=== PATIENT | female | born 1945 | race Caucasian/White ===

== ENCOUNTER 2016-11-23 13:32 | Emergency (ER) | payer MEDICARE, BC ==
--- NOTE | 2016-11-23 14:11 | UC ---
Respiratory Complaint HPI - HPI Summary HPI Summary: Starting monday she started to have malaise and congestion. in the last 1-2 days she has had a cough. the cough is dry but there is pain in the chest and mid upper back with coughing. No fever. No hemoptysis. no sob at rest. No new swelling. NO prior lung disease. Only heart disease is svt with prior ablation. - History of Current Complaint Stated Complaint: COUGH CONGESTION PAIN IN BACK TO CHEST Time Seen by Provider: 11/23/16 13:42 Hx Obtained From: Patient Onset/Duration: Gradual Onset Timing: Constant Severity Initially: Mild Severity Currently: Moderate Character: Cough: Nonproductive Aggravating Factors: Deep Breaths, Recumbent Position Alleviating Factors: Nothing Associated Signs And Symptoms: Positive: URI, Nasal Congestion, Hoarseness. Negative: Fever, Pleuritic Chest Pain - she does not have pain with inspiration but she does have pain with coughing., Wheezing, Hemoptysis, Dizziness, Calf Pain, Calf Swelling, Edema, Sinus Discomfort - Allergies/Home Medications Allergies/Adverse Reactions: Allergies Allergy/AdvReac Type Severity Reaction Status Date / Time Ampicillin Allergy N/V, RED Verified 11/23/16 13:45 BLOTCHY Budesonide [From Symbicort] Allergy TACHYCARDIA Verified 11/23/16 13:45 , Cephalexin [From Keflex] Allergy Unknown Verified 11/23/16 13:45 Reaction Details Clindamycin Allergy Headache/FACIAL Verified 11/23/16 13:45 SWELLING WITH REDNESS Formoterol [From Symbicort] Allergy Tachycardia Verified 11/23/16 13:45 Hydrochlorothiazide Allergy Unknown Verified 11/23/16 13:45 [From Avalide] Reaction Details Irbesartan [From Avalide] Allergy Unknown Verified 11/23/16 13:45 Reaction Details Penicillins Allergy Hives Verified 11/23/16 13:45 Rofecoxib [From Vioxx] Allergy Unknown Verified 11/23/16 13:45 Reaction Details Sulfa Drugs Allergy Rash, Verified 11/23/16 13:45 VOMITING BRIMENIDINE TARTRATE EYE Allergy SORE Uncoded 11/09/15 15:42 DROPS EYE/REDNESS contrast dye Allergy HIVES IN Uncoded 11/09/15 15:42 EAR DRUM NUTRASWEET Allergy HEADACHES, Uncoded 11/09/15 15:42 HYPERTENSIVE PLASTIC BANDAIDS Allergy REDNESS Uncoded 11/09/15 15:42 PMH/Surg Hx/FS Hx/Imm Hx Previously Healthy: No - depression. medications reviewed. - Surgical History Surgical History: Yes Surgery Procedure, Year, and Place: Bilateral knee replacements 1999, [facility] [place] BILATERAL CATARACTS 2015. 1985 GASTRIC STAPLING, [facility] [place]. INCISIONAL HERNIA REPAIR , [facility] [place] 1969 CSECTION, [facility] [place] 1969 INCISIONAL HERNIA REPAIR, [facility] [place]. 1964 RIGHT FEMUR RODDING and 1966 REMOVAL OF FEMUR TATY, [facility] [place]. 1969 BILATERAL TUBAL LIGATION , [facility] [place]. 1999 ABLATION FOR SVT, [facility] - Family History Known Family History: Positive: Hypertension, Other - LUNG CA FATHER BRAIN CA MOTHER - Social History Alcohol Use: Rare Substance Use Type: None Smoking Status (MU): Never Smoked Tobacco Review of Systems ENT: Sore Throat, Sinus Congestion Respiratory: Cough All Other Systems Reviewed And Are Negative: Yes Physical Exam Triage Information Reviewed: Yes Appearance: Well-Appearing - she is pleasant and jovial. non toxic and no increased work of breathing., No Pain Distress, Well-Nourished Vital Signs Reviewed: Yes Eye Exam: Normal ENT Exam: Normal Neck exam: Normal Respiratory Exam: Normal - neg egophony beverly. no increased work of breathing. Good air movement throughout. Cardiovascular Exam: Normal Abdominal Exam: Normal Musculoskeletal Exam: Normal Musculoskeletal: Positive: No Edema, Edema @, Other: - neg homans. Psychological Exam: Normal Skin Exam: Normal UC Diagnostic Evaluation - EKG Cardiac Rate: NL Cardiac Rhythm: Sinus: Normal Ectopy: None ST Segment: Normal Respiratory Course/Dx - Course Course Of Treatment: this started as a uri and has progressed to a chest cold. There is good air movement beverly and with normal vitals and normal exam, I do not see evidence for pleural effusion, chf, pneumothorax or pneumonia. z pack if symptoms persist for 10 days and robitussin dm and tessalon perles for cough. - Differential Dx/Diagnosis Differential Diagnosis/HQI/PQRI: Foreign Body, Asthma, Bronchitis, CHF, Pulmonary Edema, Exacerbation Of COPD, Influenza, Laryngitis, Lower Resp Infection, Pneumothorax, Pulmonary Embolism, Sinusitis, Tuberculosis Provider Diagnoses: cough. chest cold. uri. Discharge - Discharge Plan Condition: Good Disposition: HOME Prescriptions: Azithromyxin OMAR (NF) [Z-Omar (Zithromax) 250 mg tabs #6] 6 tab PO .TODAY, THEN 1 DAILY #6 tab Benzonatate CAP* [Tessalon 100 MG CAP*] 100 mg PO TID PRN #20 cap PRN Reason: Cough Patient Education Materials: Decongestant/Expectorant (By mouth) Referrals: No Primary Care Phys,NOPCP [Primary Care Provider] - Additional Instructions: follow up withyour primary care doctor or return here if there is any worsening or if this is not better in 5 days.
[2016-11-23 14:16] VITALS: BP 145/81
== END 2016-11-23 14:19 | disposition home or self-care (01) ==
LOC: UCCORT 13:32
DX: J06.9 Acute upper respiratory infection, unspecified (principal); R05 Cough
CPT/HCPCS: 93005; 99211; G0463

== ENCOUNTER 2018-06-04 16:49 | Emergency (ER) | payer MEDICARE, BC ==
--- OUTSIDE RECORDS SUMMARY | 2018-06-04 16:53 | XMS REPORT | Continuity of Care Document ---
:1945 External Reference #:[id number] Author Name Tony Workman D.O. Address [address] [place] [address] Care Team Providers Name Role Phone HCP given Primary Care Physician Unavailable Payers Date Identification Numbers Payment Provider Subscriber Effective: Policy Number: [id number] [facility] Jagruti Boyer 2011 Services PayID: [id number] [address] [place] [address] Effective: Policy Number: [employer] Ind/Ppo/Hmo/Pos Jagruti Boyer 2016 [id number] PayID: [id number] [address] [address] [place] [address] Advance Directives Description No Information Available Problems Date Description Provider Status Onset: 05/17/2018 Essential hypertension Tony Workman D.O. Active Family History Date Family Member(s) Observation Comments General Alcoholism maternal uncles General Asthma mother General Bleeding Tendancy paternal aunt General Colon Cancer 2 uncles General Cancer Brain mother General Cancer maternal grandmother and 3 sisters General Emotional Problems paternal grandmother and 2 aunts, maternal great grandmother General Heart Problems paternal grandmother, aunt General High Blood Pressure patient, mother, aunt General Obesity patient General Stroke General Anemia paternal aunt : (age 58 Father due to Lung Years) Cancer : (age 58 Mother due to Brain Years) Tumor Children 3 1 daughter and 2 sons Siblings None Social History Type Date Description Comments Sex Unknown Education Highest level completed, 12th grade Marital Status Work Status Retired EMS, Drafting, [employer] Abuse No history of abuse Tobacco Use Start: Unknown Denies Cigarette Use Smoking Status Reviewed: 05/17/18 Denies Cigarette Use ETOH Use Occassional Alcohol Recreational Drug Use Denies Drug Use Sun Exposure Uses sunscreen when working outside Seat Belt/Car Seat Yes Contraceptive Methods None Age 1st [place] 20 Years Old # Partners in a Lifetime 1 STD's No STD History ?Chlamydia Allergies, Adverse Reactions, Alerts Date Description Reaction Status Severity Comments 04/17/2018 Penicillin Active 04/17/2018 Sulfa Active 04/17/2018 Symbicort Active 04/17/2018 Keflex Active Medications Medication Date Status Form Strength Qnty SIG Indications Ordering Provider Irbesartan-Hyd Active Tablets 300-12.5mg 90tabs 1 by E53.8 Sopchaunceyk, rochlorothiazi 019 mouth Tony, D.O. de every day R53.83 Atorvastatin 05/17/2018 Active Tablets 10mg 90tabs take one [place], Calcium tablet by Tony, mouth every D.O. day to reduce cholesterol Vitamin A 05/16/2018 Active Capsules 15976Z daily Unknown nit Levocetirizine 05/16/2018 Active Tablets 5mg 1 tab by mouth Unknown Dihydrochloride every day as needed for allergies Aspirin 05/16/2018 Active Tablets 325mg take 1 tablet Unknown daily Vitamin D3 05/16/2018 Active Capsules 2000Un 1 every day Unknown it for vitamin d deficiency Asmanex HFA 05/02/2018 Active Aerosol 200mcg inhale 2 puffs Unknown /Act by mouth twice daily Mometasone 05/01/2018 Active Suspension 50mcg/ instill 2 Unknown Furoate Act sprays into each nostril once daily Ventolin HFA 04/17/2018 Active Aerosol 108(90 18units inhale 2 puffs Sopchak, Base) by mouth every Tony, mcg/Ac 4 hours as D.O. t needed for bronchospasm Sertraline HCL 03/29/2018 Active Tablets 100mg 30tabs 1 tablet by Law, mouth daily MD Manny Montelukast 03/25/2018 Active Tablets 10mg 30tabs 1 tablet by Law, Sodium mouth daily MD Manny Irbesartan 03/22/2018 - Hx Tablets 300mg 30tabs 1 tablet by Unknown 05/17/2018 mouth daily Immunizations Description No Information Available Vital Signs Date Vital Result Comment 05/17/2018 2:31pm BP Systolic 126 mmHg BP Diastolic 78 mmHg Weight 229.00 lb w/shoes 04/17/2018 3:42pm BP Systolic 130 mmHg BP Diastolic 80 mmHg Height 63 inches 5'3" Weight 229.00 lb BMI (Body Mass Index) 40.6 kg/m2 Results Test Date Facility Test Result H/L Range Note CBC Auto Diff 04/30/2018 [facility] White Blood 3.7 10^3/uL N 3.5- 10.8 [phone] Count Red Blood Count 4.56 10^6/uL N 4.00-5.40 Hemoglobin 12.7 g/dL N 12.0-16.0 Hematocrit 39 % N 35-47 Mean Corpuscular Volume 85 fL N 80-97 Mean Corpuscular Hemoglobin 28 pg N 27-31 Mean Corpuscular HGB Conc 33 g/dL N 31-36 Red Cell Distribution Width 15 % N 10.5-15 Platelet Count 178 10^3/uL N 150-450 Mean Platelet Volume 9.9 fL N 7.4-10.4 Abs Neutrophils 2.0 10^3/uL N 1.5-7.7 Abs Lymphocytes 1.3 10^3/uL N 1.0-4.8 Abs Monocytes 0.3 10^3/uL N 0-0.8 Abs Eosinophils 0.1 10^3/uL N 0-0.6 Abs Basophils 0 10^3/uL N 0-0.2 Abs Nucleated RBC 0 10^3/uL Granulocyte % 53.1 % Lymphocyte % 35.2 % Monocyte % 8.7 % Eosinophil % 1.8 % Basophil % 1.2 % Nucleated Red Blood Cells % 0.2 Comp Metabolic Panel 04/30/2018 [facility] Sodium 138 mmol/L N 135- 145 [phone] Potassium 4.4 mmol/L N 3.5-5.0 Chloride 103 mmol/L N 101-111 Co2 Carbon Dioxide 28 mmol/L N 22-32 Anion Gap 7 mmol/L N 2-11 Glucose 99 mg/dL N 70-100 Blood Urea Nitrogen 14 mg/dL N 6-24 Creatinine 0.65 mg/dL N 0.51-0.95 BUN/Creatinine Ratio 21.5 High 8-20 Calcium 10.1 mg/dL N 8.6-10.3 Total Protein 6.8 g/dL N 6.4-8.9 Albumin 4.0 g/dL N 3.2-5.2 Globulin 2.8 g/dL N 2-4 Albumin/Globulin Ratio 1.4 N 1-3 Total Bilirubin 0.50 mg/dL N 0.2-1.0 Alkaline Phosphatase 124 U/L High 34-104 Alt 9 U/L N 7-52 Ast 15 U/L N 13-39 Egfr Non- 89.6 >60 Egfr 108.4 >60 1 Laboratory test 04/30/2018 [facility] TSH (Thyroid 3.02 mcIU/mL N 0.34-5.60 finding [phone] Stim Horm) Vitamin B12 153 pg/mL Low 180-914 2 Magnesium 2.0 mg/dL N 1.9-2.7 Folic Acid (Folate) 9.60 ng/mL >3.99 Connective Tissue Panel 04/30/2018 [facility] Anti-Nuclear Antibody 0.2 U 3 [phone] Cyclic Citrullinated Peptide <15.6 U 4 Interpretation See Comment 5 Laboratory test 04/30/2018 [facility] Erythrocyte Sed Rate 27 mm/Hr N 0-40 finding [phone] C Reactive Protein 1.70 mg/L N <8.01 Lipid Profile (Trig/Chol/HDL) 04/30/2018 [facility] Triglycerides 115 mg/dL 6 [phone] Cholesterol 261 mg/dL 7 HDL Cholesterol 68.5 mg/dL 8 LDL Cholesterol 170 mg/dL 9 1 Because ethnic data is not always readily available, this report includes an eGFR for both -Americans and non- Americans. The National Kidney Disease Education Program (NKDEP) does not endorse the use of the MDRD equation for patients that are not between the ages of 18 and 70, are , have extremes of body size, muscle mass, or nutritional status, or are non- or non-. According to the National Kidney Foundation, irrespective of diagnosis, the stage of the disease is based on the level of kidney function: Stage Description GFR(mL/min/1.73 m(2)) 1 Kidney damage with normal or decreased GFR 90 2 Kidney damage with mild decrease in GFR 60-89 3 Moderate decrease in GFR 30-59 4 Severe decrease in GFR 15-29 5 Kidney failure <15 (or dialysis) 2 Normal Range 180 to 914 Indeterminate Range 145 to 180 Deficient Range <145 3 REFERENCE VALUE <=1.0 (Negative) 4 REFERENCE VALUE <20.0 (Negative) 5 Tests for antibodies to dsDNA and ADAM antigens are not performed automatically unless the MONICA result is > or= 3.0 U. Studies performed at [facility] indicate that positive MONICA results <3.0 U are rarely accompanied by positive second order tests. Test Performed by: [facility] [employer] [address] [place] [address] 6 Desirable: <150 Borderline High: 150-199 High: 200-499 Very High: >500 7 Desirable: <200 Borderline High: 200-239 High: >239 8 Low: <40 Desirable: 40-60 High: >60 9 Desirable: <100 Near Optimal: 100-129 Borderline High: 130-159 High: 160-189 Very High: >189 Procedures Date Code Description Status 04/17/2018 39796 Bronchospasm Evaluation Pre & Post Completed 04/17/2018 02741 Electrocardiogram Complete Completed Encounters Type Date Location Provider Dx Diagnosis Office Visit 04/17/2018 Main Office Tony Workman, J45.40 Moderate persistent 3:30p D.O. asthma, uncomplicated R07.89 Other chest pain R53.83 Other fatigue Z00.01 Encounter for general adult medical exam w abnormal findings F43.21 Adjustment disorder with depressed mood F41.9 Anxiety disorder, unspecified I44.0 Atrioventricular block, first degree M54.5 Low back pain K59.00 Constipation, unspecified Plan of Treatment 05/17/2018 - Tony Workman D.O.E53.8 Deficiency of other specified B group vitaminsNew Medication:Irbesartan-Hydrochlorothiazide 300-12.5 mg - 1 by mouth every dayNew Orders:B12 Injection, Ordered: 05/17/18Follow up:Monthly [place] for B12 plumeeerryI45 Essential (primary) frnobdelhgtqI87.40 Moderate persistent asthma, uwcevlwosmegrO02.83 Other fatigueNew Medication:Irbesartan- Hydrochlorothiazide 300-12.5 mg - 1 by mouth every dayF41.9 Anxiety disorder, lfrlvwrnfkhK97.0 Atrioventricular block, first rddietI99.5 Low back pain
[2018-06-04 17:20] VITALS: BP 161/89
--- NOTE | 2018-06-04 17:26 | UC ---
Hip/Pelvis Pain - History Of Current Complaint Chief Complaint: UCLowerExtremity Stated Complaint: HIP INJURY Time Seen by Provider: 06/04/18 17:26 Hx Last Menstrual Period: post menopause Pain Intensity: 4 - Allergies/Home Medications Allergies/Adverse Reactions: Allergies Allergy/AdvReac Type Severity Reaction Status Date / Time ampicillin Allergy Nausea And Verified 06/04/18 17:23 Vomiting budesonide [From Symbicort] Allergy Tachycardia Verified 06/04/18 17:23 cephalexin [From Keflex] Allergy Unknown Verified 06/04/18 17:24 Reaction Details clindamycin Allergy Headache Verified 06/04/18 17:25 formoterol [From Symbicort] Allergy Tachycardia Verified 06/04/18 17:23 hydrochlorothiazide Allergy Unknown Verified 06/04/18 17:25 [From Avalide] Reaction Details irbesartan [From Avalide] Allergy Unknown Verified 06/04/18 17:25 Reaction Details Penicillins Allergy Hives Verified 06/04/18 17:25 BRIMENIDINE TARTRATE EYE Allergy SORE Uncoded 11/09/15 15:42 DROPS EYE/REDNESS contrast dye Allergy HIVES IN Uncoded 11/09/15 15:42 EAR DRUM NUTRASWEET Allergy HEADACHES, Uncoded 11/09/15 15:42 HYPERTENSIVE PLASTIC BANDAIDS Allergy REDNESS Uncoded 11/09/15 15:42 PMH/Surg Hx/FS Hx/Imm Hx - Surgical History Surgical History: Yes Surgery Procedure, Year, and Place: [place] [facility] [place]. 1985 [place] [facility] [place]AL [place]ERNIA [place] , [facility] [place], [facility] [place]. [place] INCISIONAL [place]IA [place] [facility] [place] RIGHT FEMUR RODDING and 1967 REMOVAL OF FEMUR [place], [facility] [place]. 1970 BILATERAL TUBAL LIGATION , [facility] [place]. 1999 ABLATION FOR SVT, [facility] - Family History Known Family History: Positive: Hypertension, Other - LUNG CA FATHER BRAIN CA MOTHER - Social History Alcohol Use: Rare Substance Use Type: None Smoking Status (MU): Never Smoked Tobacco Physical Exam Vital Signs: Initial Vital Signs Temp 98.2 F 06/04/18 17:12 Pulse 71 06/04/18 17:12 Resp 18 06/04/18 17:12 BP 161/89 06/04/18 17:12 Pulse Ox 100 06/04/18 17:12 Discharge - Discharge Plan Referrals: Tony Workman DO [Primary Care Provider] -
--- NOTE | 2018-06-04 18:13 | UC ---
Hip/Pelvis Pain - HPI Summary HPI Summary: 73 y/o female presents to the urgent care c/o pt fell 2 weeks ago in the house and her right hiop has been getting progressively more painful at times; pt states it is uncomfortable to move around; - History Of Current Complaint Chief Complaint: UCLowerExtremity Stated Complaint: HIP INJURY Time Seen by Provider: 06/04/18 17:26 Hx Obtained From: Patient Hx Last Menstrual Period: post menopause Pain Intensity: 4 - Allergies/Home Medications Allergies/Adverse Reactions: Allergies Allergy/AdvReac Type Severity Reaction Status Date / Time ampicillin Allergy Nausea And Verified 06/04/18 17:23 Vomiting budesonide [From Symbicort] Allergy Tachycardia Verified 06/04/18 17:23 cephalexin [From Keflex] Allergy Unknown Verified 06/04/18 17:24 Reaction Details clindamycin Allergy Headache Verified 06/04/18 17:25 formoterol [From Symbicort] Allergy Tachycardia Verified 06/04/18 17:23 hydrochlorothiazide Allergy Unknown Verified 06/04/18 17:25 [From Avalide] Reaction Details irbesartan [From Avalide] Allergy Unknown Verified 06/04/18 17:25 Reaction Details Penicillins Allergy Hives Verified 06/04/18 17:25 rofecoxib [From Vioxx] Allergy Unknown Verified 06/04/18 17:26 Reaction Details Sulfa (Sulfonamide Allergy Rash Verified 06/04/18 17:26 Antibiotics) BRIMENIDINE TARTRATE EYE Allergy SORE Uncoded 11/09/15 15:42 DROPS EYE/REDNESS contrast dye Allergy HIVES IN Uncoded 11/09/15 15:42 EAR DRUM NUTRASWEET Allergy HEADACHES, Uncoded 11/09/15 15:42 HYPERTENSIVE PLASTIC BANDAIDS Allergy REDNESS Uncoded 11/09/15 15:42 Home Medications: Home Medications Albuterol HFA INHALER* [Ventolin HFA Inhaler*] 1 puff INH Q4H PRN 06/04/18 [ History Confirmed 06/04/18] Atorvastatin* [Lipitor 10 MG*] 10 mg PO 1700 06/04/18 [History Confirmed ] Irbesartan/Hydrochlorothiazide [Irbesartan-Hctz 150-12.5 mg Tb] 2 tab PO DAILY 06/04/18 [History Confirmed 06/04/18] LevoCETirizine TAB (NF) [Xyzal TAB (NF)] 5 mg PO DAILY 06/04/18 [History Confirmed 06/04/18] Mometasone 220 MCG MDI * [Asmanex 220 MCG MDI *] 2 puff INH BID 06/04/18 [ History Confirmed 06/04/18] Mometasone NASAL (NF) [Nasonex (NF)] 2 spray .SEE ORDER DAILY 06/04/18 [History Confirmed 06/04/18] PMH/Surg Hx/FS Hx/Imm Hx - Surgical History Surgical History: Yes Surgery Procedure, Year, and Place: Bilateral knee replacements 1999, [facility] [place]- BILATERAL CATARACTS 2014. 1985 GASTRIC STAP[place]ING, [facility] [place]. INCISIONAL HERNIA REPAIR , [facility] [place] 1969 CSECTION, [facility] [place]. 1969 INCISIONAL HERNIA REPAIR, [facility] [place]. 1964 RIGHT FEMUR RODDING and 1966 REMOVAL OF FEMUR TATY, [facility] [place] 1969 BILATERAL TUBAL LIGATION , [facility] [place]. 1999 ABLATION FOR SVT, [facility] - Family History Known Family History: Positive: Hypertension, Other - LUNG CA FATHER BRAIN CA MOTHER - Social History Alcohol Use: Rare Substance Use Type: None Smoking Status (MU): Never Smoked Tobacco Physical Exam - Summary Physical Exam Summary: Vital Signs Reviewed: Yes Appearance: Well-Appearing, Well-Nourished old obese female sitting in the examining table w/o any pain distress Eyes: Positive: Conjunctiva Clear - left eye blindness ENT: Positive: Normal ENT inspection, Hearing grossly normal, Pharynx normal, TMs normal, Uvula midline Neck: Positive: Supple, Nontender, No Lymphadenopathy Respiratory: Positive: Chest non-tender, Lungs clear, Normal breath sounds, No respiratory distress Cardiovascular: Positive: RRR, No Murmur, Pulses Normal, Brisk Capillary Refill Abdomen Description: Positive: Nontender, No Organomegaly, Soft. Negative: CVA Tenderness (R), CVA Tenderness (L) Bowel Sounds: Positive: Present Musculoskeletal: Positive: Strength Intact, - RT Hip: Pt is able to ambulate without difficulty or assistance, limp, or antalgic gait. No surface trauma, ecchymosis. No erythema, warmth. No deformity, crepitus, or obvious asymmetry of the RT hip. No Tenderness to palpation over the symphysis pubis, ischial bone, trochanter, SI notch, buttocks, quadriceps, femoral triangle, inguinal ligament. Point tenderness on Rt lateral side of the hip below the iliac crest. No inguinal lymphadenopathy. FROM limited due to pain. Distal motor and neurovascular status are intact. Neuro: Alert and oriented x 3. No acute neurological deficits. Speech is normal. Psychological: WNL Skin: Dry and warm Triage Information Reviewed: Yes Vital Signs: Initial Vital Signs Temp 98.2 F 06/04/18 17:12 Pulse 71 06/04/18 17:12 Resp 18 06/04/18 17:12 BP 161/89 06/04/18 17:12 Pulse Ox 100 06/04/18 17:12 Hip Injury Course/Dx - Course Course Of Treatment: Rt hip and pelvix X-ray ordered, Impression: No acute fracture is seen. There is mild bony deformity in the proximal diaphysis of the femur with cortical thickening present which is unchanged from the prior exam possibly related to an old fracture although nonspecific. There is mild to moderate bilateral osteoarthritic change in the hips. - Differential Dx/Diagnosis Differential Diagnosis/HQI/PQRI: Arthritis, Contusion, Fracture, Hematoma, Sciatica, Sprain, Other - arthritis Provider Diagnosis: Right hip pain, Osteoarthritis, Uncontrolled hypertension Discharge - Sign-Out/Discharge Documenting (check all that apply): Patient Departure - d/C home All imaging exams completed and their final reports reviewed: Yes - Discharge Plan Condition: Stable Disposition: HOME Prescriptions: HYDROcodone/ACETAMIN 5-325 MG* [Gu[place]ita 5-325 TAB*] 1 tab PO Q6H PRN #12 tab MDD 1g/4h-4g/day PRN Reason: Pain Patient Education Materials: Low-Sodium Diet (ED), Hip Pain (ED) Referrals: Quentin Connors MD [Medical Doctor] - 2 Days Tony Workman DO [Primary Care Provider] - 3 Days Additional Instructions: 1-Please take [place]ita PO as directed as directed to alleviate pain and swelling. Please take it only at night time 2-Please apply ice, avoid strenuous exercise or heavy lifting. Continue using your cane. 3- Please f/u with Orthopedic Dr Connors if pain persists for further management. 4-Your BP is elevated today. Please take your BP medications and decrease salt in your diet, monitor BP and if it continues to be elevated please f/u with your PCP for further management. If you develop chest pain, dizziness, visual disturbances, SOB, or severe SAENZ please go immediately to the ER for further management - Billing Disposition and Condition Condition: STABLE Disposition: Home
== END 2018-06-04 18:55 | disposition home or self-care (01) ==
LOC: UCEAST 16:49
DX: M25.551 Pain in right hip (principal); M16.11 Unilateral primary osteoarthritis, right hip; I10 Essential (primary) hypertension; Z88.2 Allergy status to sulfonamides; Z91.09 Other allergy status, other than to drugs and biological substances; Z91.041 Radiographic dye allergy status; Z88.0 Allergy status to penicillin; Z88.1 Allergy status to other antibiotic agents; Z88.8 Allergy status to other drugs, medicaments and biological substances
CPT/HCPCS: 99212; G0463

== ENCOUNTER 2019-02-04 18:26 | Observation (INO) | payer MEDICARE, BC ==
--- OUTSIDE RECORDS SUMMARY | 2019-02-04 18:40 | XMS REPORT | Continuity of Care Document ---
:1945 External Reference #:[id number] Author Name Chase Ryder M.D. (transmitted by agent of provider Harini Trejo ) Address [address], [place] [address] Care Team Providers Name Role Phone Tony Workman DO - Family Care Team Information Manager Imaging Medicine Problems Active Problems Provider Date Amnesia Chase Ryder M.D. Onset: 12/27/2018 Varicose veins of lower extremity Brice Mota M.D. Onset: 10/01/2015 Social History Type Date Description Comments Sex Unknown Tobacco Use Start: Unknown Never Smoked Cigarettes Smoking Status Reviewed: 12/27/18 Never Smoked Cigarettes ETOH Use Rarely consumes alcohol a few times a year Tobacco Use Start: Unknown Patient has never smoked Recreational Drug Use Denies Drug Use Exercise Type/Frequency Does not exercise Allergies, Adverse Reactions, Alerts Active Allergies Reaction Severity Comments Date Penicillin 10/01/2015 Ampicillin 10/01/2015 Sulfa 10/01/2015 Keflex 10/01/2015 Symbicort (US) 10/01/2015 Brimonidine 10/01/2015 Clindamycin 10/01/2015 Dye 10/01/2015 Medications Active Medications SIG Qnty Indications Ordering Provider Date Sertraline HCL 1 1/2 by mouth 45tabs R41.3 Chase Ryder, 12/27/2018 50mg once a day M.D. Tablets Montelukast Sodium 1 by mouth every Unknown 10mg day Tablets Irbesartan 1 by mouth every Unknown 300mg Tablets day Atorvastatin Calcium 1 tab per day Tony Workman 10mg DO Mc Tablets Levocetirizine 1 tab daily Pantera Dihydrochlorhu Stone MD 5mg Tablets Cyanocobalamin weekly injections Tony Workman 1000mcg/ML DO Mc Solution Immunizations Description No Information Available Vital Signs Date Vital Result Comment 12/27/2018 2:57pm Height 65 inches 5'5" Weight 222.00 lb Heart Rate 62 /min BP Systolic 132 mmHg BP Diastolic 80 mmHg BMI (Body Mass Index) 36.9 kg/m2 10/01/2015 3:08pm Height 65 inches 5'5" Weight 220.00 lb Heart Rate 92 /min BP Systolic Sitting 138 mmHg left arm, reg cuff BP Diastolic Sitting 84 mmHg left arm, reg cuff BMI (Body Mass Index) 36.6 kg/m2 Results Description No Information Available Procedures Description No Information Available Medical Devices Description No Information Available Encounters Description No Information Available Assessments Date Code Description Provider 12/27/2018 R41.3 Other amnesia Chase Ryder M.D. Plan of Treatment Future Appointment(s):04/11/2019 2:30 pm - Chase Ryder M.D. at [facility]12/27/2018 - Chase Ryder M.D.R41.3 Other amnesiaNew Medication:Sertraline HCL 50 mg - 1 1/2 by mouth once a dayFollow up: Follow up in 3 months ANTOINETTE for recent labs Functional Status Description No Information Available Mental Status Description No Information Available Referrals Description No Information Available
[2019-02-04 18:50] LABS: ABS Basophils 0.1 10^3/ul (0-0.2); ABS Eosinophils 0.1 10^3/ul (0-0.6); ABS Lymphocytes 2.3 10^3/ul (1.0-4.8); ABS Monocytes 0.4 10^3/ul (0-0.8); ABS Neutrophils 2.6 10^3/ul (1.5-7.7); Eosinophil % 1.8 %; Hematocrit 37 % (35-47); Hemoglobin 11.9 g/dL (12.0-16.0); Lymphocyte % 41.4 %; Mean Corpuscular HGB Conc 33 g/dL (31-36); Mean Corpuscular Hemoglobin 28 pg (27-31); Mean Corpuscular Volume 86 fL (80-97); Mean Platelet Volume 9.2 fL (7.4-10.4); Nucleated Red Blood Cells % 0.1; Platelet Count 182 10^3/uL (150-450); Red Blood Count 4.24 10^6 /uL (3.70-4.87); Red Cell Distribution Width 15 % (10-15); White Blood Count 5.4 10^3/uL (3.5-10.8)
[2019-02-04 18:55] LABS: INR 0.97 (0.82-1.09)
[2019-02-04 19:06] LABS: Albumin 4.1 g/dL (3.2-5.2); Albumin/Globulin Ratio 1.4 (1-3); Calcium 10.3 mg/dL (8.6-10.3); EGFR African American 99.5 (>60); EGFR Non-African American 82.3 (>60); Potassium 4.1 mmol/L (3.5-5.0); Total Bilirubin 0.4 mg/dL (0.2-1.0); Total Protein 7.1 g/dL (6.4-8.9)
--- NOTE | 2019-02-04 19:24 | ED ---
HPI Chest Pain - HPI Summary HPI Summary: Pt is a 73 y/o F presenting to the ED brought in by EMS for chest pain initially onset around 1500/1600 today. The pain was located in the mid-sternal area and described as tightness. It was aggravated by movement, and not brought on by anything specific. She denies SOB, nausea, diaphoresis, or dizziness. EMS gave her "three tiny pills." It has now resolved. Hx of chest pain in the past, for which she came to the hospital where it resolved, but she states this time it feels different. - History of Current Complaint Chief Complaint: EDChestPainROMI Time Seen by Provider: 02/04/19 19:16 Hx Obtained From: Patient Hx Last Menstrual Period: post menopause Onset/Duration: Started Hours Ago, Resolved Timing: Intermittent, Lasting Hours Initial Severity: Mild Current Severity: None Pain Intensity: 0 Pain Scale Used: 0-10 Numeric Chest Pain Location: Mid Sternal Chest Pain Radiates: No Character: Tightness Aggravating Factor(s): Movement Alleviating Factor(s): Spontaneous Resolution Associated Signs and Symptoms: Positive: Chest Pain. Negative: Dizziness, Shortness of Breath, Diaphoresis, Nausea - Allergy/Home Medications Allergies/Adverse Reactions: Allergies Allergy/AdvReac Type Severity Reaction Status Date / Time ampicillin Allergy Nausea And Verified 06/04/18 17:23 Vomiting budesonide [From Symbicort] Allergy Tachycardia Verified 06/04/18 17:23 cephalexin [From Keflex] Allergy Unknown Verified 06/04/18 17:24 Reaction Details clindamycin Allergy Headache Verified 06/04/18 17:25 formoterol [From Symbicort] Allergy Tachycardia Verified 06/04/18 17:23 hydrochlorothiazide Allergy Unknown Verified 06/04/18 17:25 [From Avalide] Reaction Details irbesartan [From Avalide] Allergy Unknown Verified 06/04/18 17:25 Reaction Details Penicillins Allergy Hives Verified 06/04/18 17:25 rofecoxib [From Vioxx] Allergy Unknown Verified 06/04/18 17:26 Reaction Details Sulfa (Sulfonamide Allergy Rash Verified 06/04/18 17:26 Antibiotics) BRIMENIDINE TARTRATE EYE Allergy SORE Uncoded 11/09/15 15:42 DROPS EYE/REDNESS contrast dye Allergy HIVES IN Uncoded 11/09/15 15:42 EAR DRUM NUTRASWEET Allergy HEADACHES, Uncoded 11/09/15 15:42 HYPERTENSIVE PLASTIC BANDAIDS Allergy REDNESS Uncoded 11/09/15 15:42 Home Medications: Home Medications Cholecalciferol TAB* [Vitamin D TAB*] 2,000 units PO DAILY 02/04/19 [History Confirmed 02/04/19] Cyanocobalamin INJ * [Vitamin B12 INJ *] 1,000 mcg IM WEEKLY 02/04/19 [History Confirmed 02/04/19] Irbesartan/Hctz 300/12.5 1 cap PO DAILY 02/04/19 [History Confirmed 02/04/19] Montelukast Sodium TAB* [Singulair TAB*] 10 mg PO DAILY 02/04/19 [History Confirmed 02/04/19] Sertraline* [Zoloft*] 50 mg PO DAILY 02/04/19 [History Confirmed 02/04/19] Vitamin A 8,000 unit PO DAILY 02/04/19 [History Confirmed 02/04/19] PMH/Surg Hx/FS Hx/Imm Hx Previously Healthy: Yes Endocrine/Hematology History: Reports: Hx Thyroid Disease - HISTORY OF A THYROID NODULE, NO PROBLEMS, Hx Anemia - HX OF Denies: Hx Diabetes - LABS SHOWED BOARDERLINE / GESTATIONAL Cardiovascular History: Reports: Hx Deep Vein Thrombosis, Hx Hypercholesterolemia, Hx Hypertension - CONTROL WITH MEDS, Hx Peripheral Vascular Disease - BILATERAL VARICOSE VEIN, SUPPORT STOCKING, Other Cardiovascular Problems/Disorders - ablation for SVT Denies: Hx Pacemaker/ICD Respiratory History: Reports: Hx Asthma Denies: Hx Chronic Obstructive Pulmonary Disease (COPD) GI History: Reports: Hx Gastroesophageal Reflux Disease - HX OF, Hx Irritable Bowel, Hx Ulcer - ON OMEPRAZOLE Denies: Hx Jaundice History: Reports: Other Problems/Disorders - PROBLEMS EMPTYING BLADDER SOME TIMES Denies: Hx Dialysis, Hx Renal Disease Musculoskeletal History: Reports: Hx Arthritis - GENERALIZED Sensory History: Reports: Hx Cataracts - BILATERAL, Hx Contacts or Glasses - GLASSES, Hx Glaucoma - BILATERAL Denies: Hx Hearing Aid Opthamlomology History: Reports: Hx Cataracts - BILATERAL, Hx Contacts or Glasses - GLASSES, Hx Glaucoma - BILATERAL Neurological History: Reports: Other Neuro Impairments/Disorders - OCCASIONAL DIZZINESS AND LOSS OF BALANCE Psychiatric History: Reports: Hx Depression - CONTROL WITH MEDS Denies: Hx Panic Disorder - Cancer History Cancer Type, Location and Year: skin ca removed from face, left arm, back - Surgical History Surgery Procedure, Year, and Place: BILATERAL KNEE REPLACEMENTS 1999; [facility] [place]- BILATERAL CATARACTS 2014; 1985 GASTRIC STAPLING, [facility] [place]; INCISIONAL HERNIA REPAIR, [facility] [place]; 1969 CSECTION, [facility]; 1969 INCISIONAL HERNIA REPAIR, [facility]; 1964 RIGHT FEMUR RODDING; 1967 REMOVAL OF FEMUR TATY, [facility] [place]; 1969 BILATERAL TUBAL LIGATION, [facility] [place]; 1999 CARDIAC ABLATION FOR SVT, [place]; Hx Anesthesia Reactions: No Infectious Disease History: No Infectious Disease History: Reports: Hx Human Immunodeficiency Virus (HIV) Denies: Traveled Outside the [place] in Last 30 Days - Family History Known Family History: Positive: Cardiac Disease, Hypertension, Other - LUNG CA FATHER BRAIN CA MOTHER - Social History Alcohol Use: Rare Hx Substance Use: No Substance Use Type: Reports: None Hx Tobacco Use: No Smoking Status (MU): Never Smoked Tobacco Review of Systems Negative: Skin Diaphoresis Positive: Chest Pain Negative: Shortness Of Breath Negative: Nausea Neurological: Negative - dizziness All Other Systems Reviewed And Are Negative: Yes Physical Exam - Summary Physical Exam Summary: Appearance: The patient is well-nourished in no acute distress and in no acute pain. Skin: The skin is warm and dry, and skin color reflects adequate perfusion. HEENT: The head is normocephalic and atraumatic. The pupils are equal and reactive. The conjunctivae are clear and without drainage. Nares are patent and without drainage. Mouth reveals moist mucous membranes, and the throat is without erythema and exudate. The external ears are intact. The ear canals are patent and without drainage. The tympanic membranes are intact. Neck: The neck is supple with full range of motion and non-tender. There are no carotid bruits. There is no neck vein distension. Respiratory: There is mild L parasternal chest tenderness. Lungs are clear to auscultation and breath sounds are symmetrical and equal. Cardiovascular: Heart is regular rate and rhythm. There is a soft systolic ejection murmur. There is no peripheral edema and pulses are symmetrical and equal. Abdomen: The abdomen is soft and non-tender. There are normal bowel sounds heard in all four quadrants and there is no organomegaly palpated. Musculoskeletal: There is no back tenderness noted. Extremities are non-tender with full range of motion. There is good capillary refill. There is no peripheral edema or calf tenderness elicited. Neurological: Patient is alert and oriented to person, place and time. The patient has symmetrical motor strength in all four extremities. Cranial nerves are grossly intact. Deep tendon reflexes are symmetrical and equal in all four extremities. Psychiatric: The patient has an appropriate affect and does not exhibit any anxiety or depression. Triage Information Reviewed: Yes Vital Signs On Initial Exam: Initial Vitals Temp Pulse Resp BP Pulse Ox 98 F 63 20 124/76 97 02/04/19 18:29 02/04/19 18:29 02/04/19 18:29 02/04/19 18:29 02/04/19 18:29 Vital Signs Reviewed: Yes Procedures - Sedation Patient Received Moderate/Deep Sedation with Procedure: No Diagnostics - Vital Signs Vital Signs Temp Pulse Resp BP Pulse Ox 02/04/19 18:39 68 19 125/80 98 02/04/19 18:36 11 02/04/19 18:29 98 F 63 20 124/76 97 - Laboratory Lab Results: Lab Results 02/04/19 02/04/19 02/04/19 Range/Units 18:43 18:43 18:43 WBC 5.4 (3.5-10.8) 10^3/uL RBC 4.24 (3.70-4.87) 10^6 /uL Hgb 11.9 L (12.0-16.0) g/dL Hct 37 (35-47) % MCV 86 (80-97) fL MCH 28 (27-31) pg MCHC 33 (31-36) g/dL RDW 15 (10-15) % Plt Count 182 (150-450) 10^3/uL MPV 9.2 (7.4-10.4) fL Neut % (Auto) 47.5 % Lymph % (Auto) 41.4 % Mcdowell % (Auto) 8.3 % Eos % (Auto) 1.8 % Baso % (Auto) 1.0 % Absolute Neuts (auto) 2.6 (1.5-7.7) 10^3/ul Absolute Lymphs (auto) 2.3 (1.0-4.8) 10^3/ul Absolute Monos (auto) 0.4 (0-0.8) 10^3/ul Absolute Eos (auto) 0.1 (0-0.6) 10^3/ul Absolute Basos (auto) 0.1 (0-0.2) 10^3/ul Absolute Nucleated RBC 0.0 10^3/ul Nucleated RBC % 0.1 INR (Anticoag Therapy) 0.97 (0.82-1.09) Sodium 137 (135-145) mmol/L Potassium 4.1 (3.5-5.0) mmol/L Chloride 104 (101-111) mmol/L Carbon Dioxide 29 (22-32) mmol/L Anion Gap 4 (2-11) mmol/L BUN 14 (6-24) mg/dL Creatinine 0.70 (0.51-0.95) mg/dL Est GFR ( Amer) 99.5 (>60) Est GFR (Non-Af Amer) 82.3 (>60) BUN/Creatinine Ratio 20.0 (8-20) Glucose 107 H (70-100) mg/dL Calcium 10.3 (8.6-10.3) mg/dL Total Bilirubin 0.40 (0.2-1.0) mg/dL AST 19 (13-39) U/L ALT 13 (7-52) U/L Alkaline Phosphatase 105 H (34-104) U/L Troponin I 0.00 (<0.04) ng/mL Total Protein 7.1 (6.4-8.9) g/dL Albumin 4.1 (3.2-5.2) g/dL Globulin 3.0 (2-4) g/dL Albumin/Globulin Ratio 1.4 (1-3) Result Diagrams: 02/04/19 18:43 02/04/19 18:43 Lab Statement: Any lab studies that have been ordered have been reviewed, and results considered in the medical decision making process. - EKG 1832 Cardiac Rate: NL - 65bpm EKG Rhythm: Sinus Rhythm ST Segment: Normal Ectopy: None Summary of EKG Findings: EKG at 1833 shows normal sinus rhythm at 65bpm, normal ST, no ectopy, no STEMI. ED physician has reviewed and interpreted this report. 193 Cardiac Rate: Bradycardia - 56 BPM EKG Rhythm: Sinus Bradycardia ST Segment: Normal Ectopy: None Summary of EKG Findings: EKG at 1833 shows sinus bradycardia at 56bpm, normal ST , no ectopy, no STEMI. ED physician has reviewed and interpreted this report. Chest Pain Course/Dx - Course Course Of Treatment: Ms. Boyer had relief of her chest pain when I saw her. She was nontoxic in appearance with stable vitals. An EKG, chest x-ray and labs including initial troponin were all within normal limits. She had a heart score of 5. She was borderline at that point and she began to have additional chest pain. Her EKG was unchanged. I asked the hospitalist to evaluate her for admission. - Diagnoses Provider Diagnoses: Chest pain - Provider Notifications Discussed Care Of Patient With: Merlin Sims Time Discussed With Above Provider: 19:33 Instructed by Provider To: Admit As Inpatient - Discussed pt case with Dr. Sims , hospitalist, who accepted the patient for admission to [facility]. - Critical Care Time Critical Care Time: 30-74 min - 30 min Discharge ED - Sign-Out/Discharge Documenting (check all that apply): Patient Departure - Admit - Discharge Plan Condition: Stable Disposition: ADMITTED TO [facility] - Billing Disposition and Condition Condition: STABLE Disposition: Admitted to [facility] - Attestation Statements Document Initiated by Scribe: Yes Documenting Scribe: Mayuri Monk Provider For Whom Trevoribe is Documenting (Include Credential): Albin Souza MD. Scribe Attestation: I, Mayuri Monk, scribed for Albin Souza MD. on 02/04/19 at 2152. Scribe Documentation Reviewed: Yes Provider Attestation: The documentation as recorded by the scribe, Mayuri Monk accurately reflects the service I personally performed and the decisions made by me, Albin Souza MD. Status of Scribe Document: Viewed
[2019-02-04] MEDS ORDERED: Acetaminophen TAB* 325 MG PO PRN (20:31)
[2019-02-04] MEDS ORDERED: Albuterol HFA INHALER* 8 gm MDI INH PRN (20:38)
[2019-02-04] MEDS ORDERED: Enoxaparin(*) 40 MG/0.4 ML SYR SUBCUT SCH (21:00)
--- NOTE | 2019-02-04 22:57 | HP ---
HISTORY AND PHYSICAL: DATE OF ADMISSION: 02/04/19 PRIMARY CARE PROVIDER: Tony Workman DO ATTENDING PHYSICIAN: Merlin Sims MD * (dictated by LEO Osullivan). CHIEF COMPLAINT: Chest pain. HISTORY OF PRESENT ILLNESS: Ms. Boyer is a 73-year-old female with past medical history of hypertension; atrial fibrillation, status post ablation; hyperlipidemia; asthma; depression, who presented to the ER today via ambulance with complaints of chest pain. She notes that she was playing cards this afternoon and started "not feeling well." She played a little longer and then moved to the living room. She notes that her pain worsened and she therefore called an ambulance. She was given 3 baby aspirin. She had associated dizziness, weakness, and shortness of breath without diaphoresis. The patient is in the ER now and notes she has no chest pain currently. She states that her chest pain started at approximately 1630 and lasted 3 to 4 hours. She described the chest pain in the midsternal area that she describes as an ache that radiates to the back. She notes that pain is worse with deep breathing and movement. She is unsure what has relieved the pain, but she feels comfortable at rest currently. Again, she had associated dizziness, weakness, and dyspnea without diaphoresis. She denies recent cough, postnasal drainage, or recent heavy lifting. In the emergency department, the patient received a full workup including laboratory data, which revealed no gross abnormality. An EKG was obtained x2, the first one showed a rate of 65 with a prolonged UT interval. There were no ST changes on EKG. Second EKG shows a rate of 56 with prolonged UT interval without ST depression or elevation. The patient is noted to have a prolonged UT interval from as far back as 2009, which is the oldest recorded EKG that we have on file. Troponins are negative x1. Chest x-ray has not been obtained yet. The hospitalist team was asked to evaluate the patient for admission. PAST MEDICAL HISTORY: 1. Hypertension. 2. First-degree AV block. 3. Atrial fibrillation status post ablation. 4. Hyperlipidemia. 5. Asthma. 6. Depression. PAST SURGICAL HISTORY: Left knee repair, bilateral knee arthroplasty, right femur, , hernia. HOME MEDICATIONS: 1. Albuterol inhaler 1 puff inhalation q.4 hours p.r.n. 2. Atorvastatin 10 mg p.o. at bedtime. 3. Cholecalciferol 2000 units p.o. daily. 4. Cyanocobalamin 1000 mcg IM weekly. 5. Irbesartan/HCTZ 300/12.5 one cap p.o. daily. 6. Mometasone 220 mcg metered-dose inhaler 2 puffs inhalation b.i.d. 7. Montelukast 10 mg p.o. daily. 8. Sertraline 75 mg p.o. daily. 9. Vitamin A 8000 units p.o. daily. DRUG ALLERGIES: AMPICILLIN nausea and vomiting, BUDESONIDE tachycardia, CEPHALEXIN unknown, CLINDAMYCIN headache, FORMOTEROL tachycardia, PENICILLIN hives, ROFECOXIB unknown, SULFA rash, BRIMONIDINE TARTRATE EYE DROPS sore eye/ redness, CONTRAST DYE hives in eardrum, NUTRASWEET headache and hypertension, PLASTIC BAND-AIDS redness. FAMILY HISTORY: Mother had hypertension, of brain tumor. Father of cancer, unsure what kind. Maternal grandfather at a young age, unsure cause of . Father's side of the family with extensive heart disease. SOCIAL HISTORY: The patient denies current or former use of tobacco although she reports a 50-year history of second-hand smoke exposure She drinks approximately 1 alcoholic beverage per week. She lives alone with her two dogs. She has Meals on Wheels deliveries. In the event that she is unable to make her own medical decisions, she has appointed her son, Jose A, to be her surrogate decision maker. REVIEW OF SYSTEMS: A 14-point review of systems has been performed and all the pertinent positives and negatives are in the HPI, all other systems are negative. PHYSICAL EXAMINATION GENERAL: Ms. Boyer is a well-developed, well-nourished, older white woman who is sitting up in bed. She is mildly confused that time. She appears comfortable and in no acute distress. HEENT: PERRL. EOMI. Nonicteric sclerae. Hearing is grossly intact. Oral mucous membranes are moist. Poor dentition. Pharynx is clear. Tongue is at midline. Palate elevates symmetrically. PULMONARY: Symmetrical chest expansion without use of accessory muscles. Clear to auscultation bilaterally without rhonchi, wheezes, or rubs. CARDIOVASCULAR: Somewhat distant heart sounds with S1, S2 present without murmurs, rubs, clicks, or gallops. Regular rate and rhythm. There is no peripheral edema. Radial and pedal pulses are palpable. Midsternal chest wall tender to palpation. Left mid posterior thoracic area mildly tender to palpation. ABDOMEN: Bowel sounds in all quadrants. Abdomen is obese, soft, nontender to palpation. NEURO: The patient is awake. She is alert and oriented x2. She knows the month, but is unsure of the year guessing 2017, 2018, and 2019. Cranial nerves are grossly intact. Muscle strength is 5/5 bilaterally in upper and lower extremities. LABORATORY DATA AND DIAGNOSTIC STUDIES: CBC within normal limits. CMP within normal limits. Troponin 0.00. EKG times x2 shows first-degree AV block. ASSESSMENT AND PLAN: Ms. Boyer is a 73-year-old female with a past medical history of hypertension, hyperlipidemia, obesity, second-hand tobacco smoke exposure, who presented to the emergency room today with complaints of midsternal chest pain. She will be admitted observation for: 1. Chest pain. The patient presents with midsternal chest pain associated dizziness, weakness, dyspnea. She does note that her chest pain is reproducible with palpation. HEART score is 4 with risk of major adverse cardiac event between 12% and 16.6%. MAGNO score is 2 with 8% risk of all-cause mortality at 14 days. The patient will be admitted to the telemetry floor. We will continue to trend troponins. An echocardiogram has been ordered for the morning. A nuclear medicine non-exercise stress test has been ordered. In the meantime, the patient has been offered Tylenol for pain control for pleuritic chest pain. 2. Hypertension. Continue home medications irbesartan/hydrochlorothiazide. 3. Hyperlipidemia. Continue home medication atorvastatin. 4. Asthma. Continue home inhalers, montelukast, levocetirizine. 5. Depression. Continue sertraline. 6. DVT prophylaxis. According to the DVT Risk Assessment, the patient scores 3 placing her at high risk. She will be started on Lovenox. 7. Code status. Full code. TIME SPENT: Approximately 60 minutes was spent on this admission, greater than half that time was spent with the patient and her son obtaining history, performing physical, and reviewing the plan of care. The case has been reviewed with my attending, Dr. Sims, who is in agreement with the plan of care. JOSE MIGUEL JANE, LEO [id number]/[facility] #: [id number] [facility]
[2019-02-04] MEDS: Mometasone 220 MCG MDI INH SCH (23:13)
[2019-02-05 01:26] LABS: ALT 12 U/L (7-52); AST 16 U/L (13-39); Albumin 3.7 g/dL (3.2-5.2); Albumin/Globulin Ratio 1.4 (1-3); Alkaline Phosphatase 94 U/L (34-104); Anion Gap 5 mmol/L (2-11); Blood Urea Nitrogen 14 mg/dL (6-24); CO2 Carbon Dioxide 28 mmol/L (22-32); Calcium 9.9 mg/dL (8.6-10.3); Chloride 106 mmol/L (101-111); EGFR African American 128.8 (>60); EGFR Non-African American 106.4 (>60); Globulin 2.7 g/dL (2-4); Glucose 98 mg/dL (70-100); Potassium 3.6 mmol/L (3.5-5.0); Sodium 139 mmol/L (135-145); Total Protein 6.4 g/dL (6.4-8.9)
[2019-02-05 06:09] LABS: HDL Cholesterol 54.5 mg/dL
[2019-02-05] MEDS: Mometasone 220 MCG MDI INH SCH (08:17)
[2019-02-05] MEDS ORDERED: Cholecalciferol TAB* 1000 UNITS PO SCH (09:00)
[2019-02-05] MEDS ORDERED: Losartan TAB* 25 MG PO SCH (09:00)
[2019-02-05] MEDS ORDERED: Hydrochlorothiazide TAB* 25 MG PO SCH (09:00)
[2019-02-05] MEDS ORDERED: IRBESARTAN PO SCH (09:00)
[2019-02-05] MEDS ORDERED: Sertraline* 25 MG TAB PO SCH (09:00)
[2019-02-05] MEDS ORDERED: HCTZ PO SCH (09:00)
[2019-02-05] MEDS ORDERED: Montelukast Sodium TAB* 10 MG PO SCH (09:00)
[2019-02-05] MEDS ORDERED: Regadenoson* 0.4 MG/5 ML SYRINGE ONE (09:28)
[2019-02-05] MEDS ORDERED: Aminophylline IV* 25 MG/ML 10 ML VIAL ONE (09:28)
--- NOTE | 2019-02-05 10:28 | ECHO ---
*[facility]* [place] [address] Fax #: [phone] Transthoracic Echocardiogram Patient: Jagruti Boyer : 1945 Study Date: 02/05/2019 Age: 73 Gender: F HR: 63 bpm Height: 67 in /170.2 cm BSA: 2.15 m^2 Weight: 229.5 lb /104.3 kg BMI: 36 kg/m^2 *Technology Recruiter: * Cinthia Huertas [facility] *Referring Physician: * Cate Pizarro *Reading Physician: * Shivam Toro MD Indications: Chest Pain, unspecified. History: Supraventricular tachycardia. Deep vein thrombosis. Asthma. Labs, prior tests, procedures, and surgery: Electrophysiology study with ablation. Conclusions Summary: - Left ventricle: Systolic function is normal. The estimated ejection fraction is 60-65%. Wall motion is normal; there are no regional wall motion abnormalities. - Right ventricle: Systolic pressure is mildly increased. - Mitral valve: There is mild regurgitation. - Aortic valve: The findings are consistent with mild stenosis. - Tricuspid valve: There is moderate regurgitation. - Pulmonary arteries: Systolic pressure is mildly increased. Pulmonary artery pressure may be underestimated - Study data: No prior study is available for comparison. Study data: Transthoracic echocardiogram. Procedure: Transthoracic echocardiography was performed. Image quality was fair. Complete 2D, spectral Doppler, and color flow Doppler. Location: Bedside. Patient status: Inpatient. Patient room number: 444-01. No prior study is available for comparison. Rhythm: Normal sinus rhythm. Findings Left ventricle: The cavity size is below normal. Wall thickness is normal. Systolic function is normal. The estimated ejection fraction is 60-65%. Wall motion is normal; there are no regional wall motion abnormalities. Doppler parameters are consistent with abnormal left ventricular relaxation (grade 1 diastolic dysfunction). Right ventricle: The cavity size is moderately dilated. Systolic function is low normal. Systolic pressure is mildly increased. Ventricular septum: There is septal flattening of the interventricular septum consistent with RV volume or pressure overload. Left atrium: The atrium is moderately to severely dilated. Right atrium: The atrium is mildly dilated. Mitral valve: The Mitral valve annulus appears mildly calcified. The leaflets are mildly thickened. There is no evidence of stenosis. There is mild regurgitation. Aortic valve: The valve is trileaflet. The leaflets are mildly calcified. The findings are consistent with mild stenosis. There is no significant regurgitation. Tricuspid valve: The leaflets are normal thickness. There is no evidence of stenosis. There is moderate regurgitation. Pulmonic valve: The leaflets are normal thickness. There is no evidence of stenosis. There is trace regurgitation. Aorta: Aortic root: The aortic root is appears normal. Ascending aorta: The ascending aorta is appears normal. Aortic arch: The aortic arch is appears normal. Pericardium: There is no significant pericardial effusion. Pulmonary arteries: Poorly visualized. Systolic pressure is mildly increased. Pulmonary artery pressure may be underestimated Systemic veins: Inferior vena cava: The vessel is normal in size. There is (>= 50%) respiratory change in the IVC dimension. Measurements Left ventricle Value Ref Aortic valve Value Ref ANNA, LAX (L) 3.5 cm 3.8 - 5.2 Brunilda diam, ED 2.1 cm ----- ESD, LAX 2.3 cm 2.2 - 3.5 Peak v, S 2.2 m/sec ----- FS, LAX 34 % 27 - 45 VTI, S 52.0 cm ----- PW, ED, LAX 0.9 cm 0.6 - 0.9 Mean grad, S 10.0 mm Hg ----- FS 34 % 27 - 45 Peak grad, S 19.0 mm Hg ----- PW, ED 0.9 cm 0.6 - 0.9 LVOT/AV, VTI ratio 0.42 ----- PW/ID, ED 0.27 ADILIA, VTI 1.33 cm^2 ----- E', lat brunilda, TDI (L) 7.2 cm/sec >=10.0 ADILIA, Vmax 1.17 cm^2 --- -- E/e', lat brunilda, 10 TDI Mitral valve Value Ref E', med brunilda, TDI (L) 5.2 cm/sec >=7.0 Peak E 0.71 m/sec --- -- E/e', med brunilda, 14 Peak A 1.09 m/sec ----- TDI Decel time 201 ms ----- E', avg, TDI 6.2 cm/sec Peak grad, D 2.0 mm Hg ----- E/e', avg, TDI 12 <=14 Peak E/A ratio 0.7 --- -- LVOT Value Ref Pulmonic valve Value Ref Diam, S 2.00 cm Peak v, S 0.87 m/sec ----- Area 3.1 cm^2 Peak grad, S 3.0 mm Hg ----- Peak selina, S 0.82 m/sec VTI, S 22.0 cm Tricuspid valve Value Ref Mean grad, S 2 mm Hg TR peak v (H) 3.1 m/sec <=2.8 SV 69 ml Peak RV-RA grad, S 38 mm Hg ----- SV/bsa 32 ml/m^2 Aortic root Value Ref Ventricular septum Value Ref Root diam 3.1 cm <4.3 IVS, ED (H) 1.2 cm 0.6 - 0.9 Root max diam, ED 3.1 cm <4.3 Right ventricle Value Ref Ascending aorta Value Ref ANNA, LAX 4.9 cm AAo AP diam, S 3.5 cm ----- ANNA minor ax, A4C (H) 4.7 cm 1.9 - 3.5 mid Aortic arch Value Ref Pressure, S 41 mm Hg Arch diam 2.3 cm ----- Left atrium Value Ref Decending aorta Value Ref AP dim, ES (H) 3.90 cm 2.70 - Ramakrishna peak selina 0.64 m/sec ----- 3.80 ML dim, A4C 5.6 cm Pulmonary artery Value Ref SI dim, A4C 4.7 cm Pressure, S 38.0 mm Hg ----- Vol/bsa, ES, 1-p 39 ml/m^2 11 - 40 A4C Inferior vena cava Value Ref Vol/bsa, ES, A/L (H) 48 ml/m^2 16 - 34 Diam 1.4 cm ----- Right atrium Value Ref SI dim, ES 4.6 cm 3.4 - 5.3 ML dim, ES, A4C (H) 4.6 cm 2.6 - 4.4 SI dim, ES, A4C 4.6 cm 3.4 - 5.3 Estimated RAP 3 mm Hg Legend: (L) and (H) figueroa values outside specified reference range. Prepared and electronically signed by Shivam Toro MD 02/05/2019 10:27
[2019-02-05 12:06] VITALS: BP 139/109
[2019-02-05] MEDS ORDERED: Atorvastatin* 10 MG TAB PO SCH (17:00)
--- NOTE | 2019-02-05 22:04 | DS ---
DISCHARGE SUMMARY: DATE OF ADMISSION: 02/04/19 DATE OF DISCHARGE: 02/05/19 PRIMARY CARE PROVIDER: Tony Workman DO. ATTENDING PHYSICIAN: Sonal Feliciano MD * (dictated by LEO Osullivan). PRIMARY DIAGNOSIS: Atypical chest pain likely musculoskeletal. SECONDARY DIAGNOSES: 1. Hypertension. 2. First-degree atrioventricular block. 3. Atrial fibrillation, status post ablation. 4. Hyperlipidemia. 5. Asthma. 6. Depression. STUDIES WHILE IN THE HOSPITAL: 1. Transthoracic echocardiogram. Summary: LV systolic function normal. Estimated EF is 60% to 65%. Wall motion is normal. There are no regional wall motion abnormalities. Grade 1 diastolic dysfunction. RV systolic pressure mildly increased. Mild MR, mild , moderate TR. Pulmonary artery systolic pressure mildly increased. 2. Chest x-ray, impression: No evidence for active cardiopulmonary disease. 3. Nuclear medicine stress test EKG: No evidence of MD by EKG criteria. 4. Nuclear medicine stress test, nuclear portion, impression: No compelling evidence for stress-induced ischemia or presence of an infarct. Normal left ventricular wall motion and estimated ejection fraction. Assessment, low risk based on nuclear portion. 5. EKG: Rate 56, prolonged MA interval. No ST changes. MEDICATIONS: Home medications: 1. Albuterol HFA inhaler 1 puff inhalation q.4 hours p.r.n. 2. Atorvastatin 10 mg p.o. at bedtime. 3. Cholecalciferol 2000 units p.o. daily. 4. Cyanocobalamin 1000 mcg IM weekly. 5. Irbesartan/HCTZ 300/12.5, 1 cap p.o. daily. 6. Mometasone 220 MDI 2 puffs inhalation b.i.d. 7. Montelukast 10 mg p.o. daily. 8. Sertraline 50 mg p.o. daily. 9. Vitamin A 8000 units p.o. daily. Lastrup Medications: Acetaminophen 650 mg p.o. q.6 hours p.r.n. chest wall pain. HISTORY OF PRESENT ILLNESS/HOSPITAL COURSE: Ms. Boyer is a 73-year-old female with past medical history of hypertension, hyperlipidemia, first-degree AV block, asthma, who presented to the ER on 02/04/19 with complaints of chest pain. For full and complete details, please see the history and physical dictated on 02/04/19, but in short, the patient presents with these complaints. She called the ambulance. She was given 3 baby aspirin. Her pain lasted for 3 to 4 hours and eventually subsided. She described the pain as midsternal and worsened with deep breathing, consistent with pleuritic chest pain. Due to an elevated MAGNO score of 2 and an elevated HEART score of 4, the patient was admitted for further workup. Troponins were obtained q.3 hours and were negative x3. EKG showed no ST changes, but was positive for first degree AV block, which is chronic. Echocardiogram was performed and showed no wall motion abnormalities, regular EF, grade 1 diastolic dysfunction. Nuclear medicine stress test was performed. EKG portion showed no evidence of MD. Nuc med portion showed no evidence of stress-induced ischemia or presence of infarct and was assessed low risk. The patient no longer has chest pain, although she does admit to some pain with deep breathing. She notes that the area is tender to palpation. This likely represents pleuritic chest pain. She is recommended to take Tylenol for chest wall tenderness, but is encouraged to return to the ER for any other chest pain symptoms. Risks assessment was performed. The patient has a mildly elevated hemoglobin A1c at 5.8. Her LDL cholesterol was 90. She would benefit from better LDL control with possible increase in her atorvastatin. This should be discussed with her primary care provider. At the time of discharge, the patient is eager to go home. She denies chest pain at rest, chest pain with exertion, but she does note that she has midsternal chest pain with deep inhalation. She has no other complaints. REVIEW OF SYSTEMS: A 14-point review of systems has been performed and all the pertinent positive and negatives are in the HPI. All other systems are negative. PHYSICAL EXAMINATION: General: Ms. Boyer is a well-developed, well- nourished, obese, older, white woman who is sitting up in bed. She is dressed in her night gown. She appears comfortable and in no acute distress. HEENT: PERRL, EOMI, nonicteric sclerae. Hearing grossly intact. Oral mucous membranes are moist. There are no lesions. The pharynx is clear without exudate or erythema. The tongue is at midline. The palate elevate symmetrically. Cardiovascular: Regular rate and rhythm with S1, S2 present without murmurs, rubs, clicks, or gallops. There is no JVD. There is no peripheral edema. There is midsternal chest wall tenderness to palpation. Pulmonary: Symmetrical chest expansion without use of accessory muscles. Clear to auscultation bilaterally without rhonchi, wheezes, or rubs. Abdomen: Obese. Bowel sounds in all quadrants. Soft, nontender to palpation. Neuro: The patient is awake. She is alert and oriented x3 with cranial nerves grossly intact. Muscle strength is equal bilaterally 5/5. Orthopedic Radiologic Technologist strength equal. Vital Signs: Temperature 97.1 oral, heart rate 58, respiratory rate 16, oxygen saturation 98% on room air, blood pressure 139/109. DISCHARGE PLAN: Ms. Boyer will be discharged home. CONDITION: Good. DIET: Heart healthy. ACTIVITY: As tolerated. MEDICATIONS: 1. No changes. 2. Chest pain is likely musculoskeletal in nature. Consider Tylenol for pain that is tender to palpation. EDUCATION: 1. Follow up with primary care provider in 4 to 7 days. Discussed recent hospitalization. LDL of 90 and possibly increasing atorvastatin. 2. Return to the ER or nearest hospital if symptoms return. If you experience any chest pain or discomfort, shortness of breath, dizziness, lightheadedness, loss of consciousness, high fevers, chills, night sweats or any other worrisome signs or symptoms. This is a summarized report of a complex medical history and hospital stay. For further details, please see the entire medical record. TIME SPENT: Approximately 35 minutes was spent on this discharge, greater than half of that time was spent [id number] with the patient discussing discharge plans and instructions. LEO NAVA [id number]/CPS #: [id number] EUGENIA
== END 2019-02-05 14:18 | disposition home or self-care (01) ==
LOC: ED 18:26 → MEDTELE 20:31
PROVIDERS: ADMIT Internal Medicine; ATTEND Internal Medicine
DX: R07.89 Other chest pain (principal); I10 Essential (primary) hypertension; I44.0 Atrioventricular block, first degree; E78.00 Pure hypercholesterolemia, unspecified; I48.91 Unspecified atrial fibrillation; Z98.890 Other specified postprocedural states; E78.5 Hyperlipidemia, unspecified; J45.909 Unspecified asthma, uncomplicated; F32.9 Major depressive disorder, single episode, unspecified; Z79.899 Other long term (current) drug therapy; E03.9 Hypothyroidism, unspecified; Z86.718 Personal history of other venous thrombosis and embolism; K21.9 Gastro-esophageal reflux disease without esophagitis; Z85.820 Personal history of malignant melanoma of skin; R94.31 Abnormal electrocardiogram [ECG] [EKG]
CPT/HCPCS: 36415; 71045; 78452; 80048; 80053; 80061; 80076; 83036; 84484; 85025; 85610; 93005; 93017; 93306; 96372; 99283; A9270-GY; A9502; G0378; J0280; J1650; J2785